=== PATIENT | male | born 1950 | race Caucasian/White ===

== ENCOUNTER → 2022-09-25 | Outpatient (CLI) | payer MEDICARE ==
[2022-09-25 14:12] LABS: Creatinine Urine 52.6 mg/dL (27.00-270.00); Protein, Urine Quantitative 19.4 mg/dL (0.0-11.9)
== END | disposition home or self-care (01) ==
LOC: LAB 06:00 → LAB SHORT 06:00
PROVIDERS: Internal Medicine Nephrology
DX: N18.2 Chronic kidney disease, stage 2 (mild) (principal); D63.1 Anemia in chronic kidney disease; N25.81 Secondary hyperparathyroidism of renal origin; D50.9 Iron deficiency anemia, unspecified; D51.8 Other vitamin B12 deficiency anemias; D52.8 Other folate deficiency anemias; E55.9 Vitamin D deficiency, unspecified; E78.00 Pure hypercholesterolemia, unspecified; R76.9 Abnormal immunological finding in serum, unspecified; R94.5 Abnormal results of liver function studies; R94.6 Abnormal results of thyroid function studies
CPT/HCPCS: 81050; 82043; 82570; 84156

== ENCOUNTER → 2023-02-12 | Outpatient (CLI) | payer MEDICARE | END | disposition home or self-care (01) | LOC: LAB SHORT 08:00 | PROVIDERS: Internal Medicine Nephrology | DX: N18.30 Chronic kidney disease, stage 3 unspecified (principal); D63.1 Anemia in chronic kidney disease; N25.81 Secondary hyperparathyroidism of renal origin; G60.9 Hereditary and idiopathic neuropathy, unspecified; E55.9 Vitamin D deficiency, unspecified; E78.00 Pure hypercholesterolemia, unspecified; R76.9 Abnormal immunological finding in serum, unspecified; R94.5 Abnormal results of liver function studies | CPT/HCPCS: 81050 ==

== ENCOUNTER → 2025-05-04 | Outpatient (CLI) | payer MEDICARE ==
[2025-05-08 04:59] LABS: CREATININE,URINE - PER 24H 1664 mg/d (800-2100); CREATININE,URINE - PER VOLUME 64 mg/dL; HOURS COLLECTED 24 hr; METANEPHRINE,UR - RATIO TO CRT 70 ug/g CRT (0-300); METANEPHRINE,URINE - PER 24H 117 ug/d (55-320); METANEPHRINE,URN - PER VOLUME 45 ug/L; NORMETANEPHRINE,U - PER VOLUME 182 ug/L; NORMETANEPHRINE,URN - PER 24H 473 ug/d (114-865); NORMETANEPHRINE,URN/CRT RATIO 284 ug/g CRT (0-400)
[2025-05-08 05:00] LABS: CREATININE, URINE - PER 24H 1664 mg/d (800-2100); CREATININE, URINE - PER VOLUME 64 mg/dL; HOURS COLLECTED 24 hr; VANILLYLMANDELIC ACID -PER 24H 5.7 mg/d (0.0-7.0); VANILLYLMANDELIC ACID -PER VOL 2.2 mg/L; VANILLYLMANDELIC ACID -RAT CRT 3 mg/gCR (0-6)
== END ==
LOC: LAB FUT 05-02 11:00 → EDSTATUS 05-02 11:00 → LAB 09:53 → LAB SHORT 09:53
PROVIDERS: Internal Medicine Nephrology
DX: N18.1 Chronic kidney disease, stage 1 (principal); D63.1 Anemia in chronic kidney disease; N25.81 Secondary hyperparathyroidism of renal origin; E55.9 Vitamin D deficiency, unspecified; E78.00 Pure hypercholesterolemia, unspecified; R76.9 Abnormal immunological finding in serum, unspecified; R94.5 Abnormal results of liver function studies; R94.6 Abnormal results of thyroid function studies
CPT/HCPCS: 81050; 83835; 84585

== ENCOUNTER 2025-06-30 12:08 | Inpatient (IN) | payer MEDICARE ==
[~2025-06-30] VITALS: Ht 177.8 cm; Wt 95.8 kg
[2025-06-30 13:14] LABS: Source, Urine Clean Catch
[2025-06-30 13:29] LABS: BASOPHILS ABSOLUTE AUTO 0.08 K/mm3 (0.00-0.23); BASOPHILS PERCENT AUTO 1 % (0-2); EOSINOPHILS ABSOLUTE AUTO 0.21 K/mm3 (0.00-0.68); EOSINOPHILS PERCENT AUTO 3 % (0-6); Hematocrit 39.4 % (37.0-53.0); Hemoglobin 14.3 g/dL (13.5-17.5); IMMATURE GRAN ABSOLUTE AUTO 0.04 K/mm3 (0.00-0.10); IMMATURE GRAN PERCENT AUTO 1 % (0-1); LYMPHOCYTES ABSOLUTE AUTO 0.62 K/mm3 (0.84-5.20); LYMPHOCYTES PERCENT AUTO 10 % (21-46); MONOCYTES ABSOLUTE AUTO 0.45 K/mm3 (0.16-1.47); MONOCYTES PERCENT AUTO 7 % (4-13); Mean Corpuscular HGB Conc 36.3 g/dL (31.5-36.5); Mean Corpuscular Volume 88 fL (80-100); NEUTROPHILS ABSOLUTE AUTO 4.88 K/mm3 (1.96-9.15); NEUTROPHILS PERCENT AUTO 78 % (41-73); NRBC ABSOLUTE 0.00 K/mm3 (0.00-0.02); NRBC Auto 0.0 /100 WBC (0.0-0.2); Platelet Count 243 K/mm3 (150-400); RDW Coefficient Variation 12.8 % (11.7-14.2); RDW Standard Deviation 41.3 fL (35.1-46.3)
[2025-06-30 13:38] LABS: Osmolality, Urine 521 mos/kg (15-1400)
[2025-06-30 13:53] LABS: Osmolality, Serum 289.0 mos/KG (275-300)
[2025-06-30 13:58] LABS: Anion Gap 12.0 mmol/L (3-11); Blood Urea Nitrogen 17.0 mg/dL (8-24); CO2, Blood 20.0 mmol/L (21-32); Calcium, Blood 9.4 mg/dL (8.5-10.1); Chloride, Blood 93.0 mmol/L (98-108); Creatinine, Blood 0.77 mg/dL (0.60-1.20); Glucose, Blood 427.0 mg/dL (70-99); Potassium, Blood 4.0 mmol/L (3.5-5.5); Sodium, Blood 121.0 mmol/L (136-145)
[2025-06-30 13:59] LABS: Color, Urine Yellow (P-Yellow); Glucose Qualitative, Urine 4+ (Neg); Ketones, Urine Neg (Neg); Leukocyte Esterase, Urine Neg (Neg); Protein, Urine 3+ (Neg); Specific Gravity, Urine 1.010 (1.003-1.022); Urobilinogen, Urine NORM (Normal)
[2025-06-30 14:10] LABS: Bilirubin, Urine 1+ (Neg)
[2025-06-30 14:12] LABS: White Blood Cells, Urine 0-2 /hpf (0-5)
[2025-06-30] MEDS ORDERED: AMLO5 PO (14:49)
[2025-06-30] MEDS ORDERED: IRBE150 PO (14:50)
[2025-06-30 14:53] LABS: Sodium, Urine, Random 23 mmol/L (20-110)
[2025-06-30] MEDS ORDERED: NS 1,000 ML IV SCH (15:05)
[2025-06-30] MEDS ORDERED: Ondansetron HCl 2 MG / ML 2ML Vial IV ONE (15:05)
[2025-06-30] MEDS ORDERED: Insulin Human Lispro 100 Units/ML 3ML Syringe SC SCH ×2 (16:30→21:00)
[2025-06-30 17:39] VITALS: BP 175/108
[2025-06-30 19:03] LABS: Alanine Aminotransfer (ALT/SGP 137 U/L (12-78); Albumin, Blood 3.3 g/dL (3.4-5.0); Albumin/Globulin Ratio 0.6 (0.8-1.8); Anion Gap 11 mmol/L (3-11); Aspartate Aminotrans (AST/SGOT 69 U/L (12-37); Bilirubin, Direct 7.9 mg/dL (0.0-0.3); Bilirubin, Indirect 2.1 mg/dL (0.1-0.7); Bilirubin, Total 10.0 mg/dL (0.1-1.0); Blood Urea Nitrogen 14 mg/dL (8-24); CO2, Blood 22 mmol/L (21-32); Calcium, Blood 9.2 mg/dL (8.5-10.1); Chloride, Blood 96 mmol/L (98-108); Creatinine, Blood 0.70 mg/dL (0.60-1.20); Globulin, Blood 5.1 g/dL (2.2-4.0); Glucose, Blood 355 mg/dL (70-99); Phosphorus, Blood 3.9 mg/dL (2.5-4.9); Potassium, Blood 3.8 mmol/L (3.5-5.5); Sodium, Blood 125 mmol/L (136-145); Total Protein, Blood 8.4 g/dL (6.4-8.2); Uric Acid, Blood 2.9 mg/dL (3.5-7.2)
[2025-06-30 19:26] LABS: Osmolality, Serum 289 mos/KG (275-300)
--- NOTE | 2025-06-30 20:19 | NUR ---
PHYSICIAN COMMUNICATION CONTACTED FARMER VEGETABLE RESIDENT, DR EARL, TO NOTIFY HIM THAT THE PATIENT IS REQUESTING HIS HOME MEDICATIONS TO BE RESTARTED AND THAT HE IS REPORTING ARTHRITIS PAIN AND IS REQUESTING ADVIL PM, STATING THAT TYLENOL IS INEFFECTIVE FOR HIS PAIN. ALSO NOTIFIED DR EARL THAT THE PATIENT'S BLOOD SUGAR REMAINS ELEVATED AT 372. DR EARL TO INPUT ORDERS.
[2025-06-30] MEDS ORDERED: Insulin Glargine 100 Unit/ML 3 ML SYR SC SCH (21:00)
[2025-06-30 21:10] VITALS: BP 162/85
[2025-06-30 23:55] VITALS: BP 147/86
[2025-07-01 03:22] VITALS: BP 150/82
[2025-07-01 04:28] LABS: Albumin, Blood 3.1 g/dL (3.4-5.0); Anion Gap 10 mmol/L (3-11); Blood Urea Nitrogen 14 mg/dL (8-24); CO2, Blood 22 mmol/L (21-32); Calcium, Blood 8.7 mg/dL (8.5-10.1); Chloride, Blood 100 mmol/L (98-108); Creatinine, Blood 0.65 mg/dL (0.60-1.20); Glucose, Blood 252 mg/dL (70-99); Phosphorus, Blood 3.3 mg/dL (2.5-4.9); Potassium, Blood 3.7 mmol/L (3.5-5.5); Sodium, Blood 128 mmol/L (136-145)
--- NOTE | 2025-07-01 07:16 | NUR ---
SHIFT SUMMARY PATIENT ALERT AND ORIENTED X4. MEDICATED PER EMAR FOR SLEEP. ON ROOM AIR WIHILE AWAKE, USED HOME CPAP FOR SLEEP, DENIES ANY SHORTNESS OF BREATH. VITAL SIGNS STABLE. NO ACUTE ISSUES NOTED OVERNIGHT. WILL CONTINUE TO MONITOR. CALL LIGHT WITHIN REACH.
[2025-07-01 07:58] VITALS: BP 148/86
[2025-07-01] MEDS ORDERED: Enoxaparin 40 MG/0.4 ML SYR SC SCH (09:00)
[2025-07-01] MEDS ORDERED: Insulin Glargine 100 Unit/ML 3 ML SYR SC SCH ×2 (09:00→21:00)
--- NOTE | 2025-07-01 12:48 | NUR ---
UPDATE DR ALDANA NOTIFIED OF PATIENT SODIUM LEVEL, NEW ORDERS RECEIVED.
[2025-07-01 13:51] VITALS: BP 152/91
--- NOTE | 2025-07-01 18:15 | NUR ---
UPDATE THIS RN NOTIFIED DR ALDANA REGARDING SODIUM LEVEL, NEW ORDERS RECEIVED.
--- NOTE | 2025-07-01 18:34 | NUR ---
SHIFT SUMMARY PATIENT IS ALERT AND ORIENTED, ABLE TO FOLLOW COMMANDS AND MAKE NEEDS KNOWN. VSS, SPO2 >90% ON RA, PATIENT HYPERTENSIVE THIS SHIFT, PATIENT ASYMPTOMATIC, MD MADE AWARE, NEW ORDERS RECEIVED. PATIENT DENIES N/V/D, PATIENT HAS AN OSTOMY THAT HE SELF MANAGES. PATIENT HAS HAD COLIN COLORED URINE THIS SHIFT, DENIES DIFFICULTY URINATING OR PAIN WITH URINATION. PATIENT ON A 1L FLUID RESTRICTOION. PATIENT AMBULATES WITH A CANE INDEPENDENTLY. PATIENT UP IN BED, BED IN LOWEST POSITION, CALL LIGHT WITHIN REACH.
[2025-07-01 20:45] VITALS: BP 165/81
[2025-07-01 23:46] VITALS: BP 121/80
[2025-07-02 00:06] VITALS: BP 169/94
[2025-07-02 00:10] VITALS: BP 155/85
[2025-07-02 03:40] VITALS: BP 163/73
[2025-07-02 04:28] LABS: Hematocrit 38.0 % (37.0-53.0); Hemoglobin 13.3 g/dL (13.5-17.5)
[2025-07-02 05:04] LABS: Albumin, Blood 2.9 g/dL (3.4-5.0); Anion Gap 13 mmol/L (3-11); Blood Urea Nitrogen 19 mg/dL (8-24); CO2, Blood 18 mmol/L (21-32); Calcium, Blood 9.1 mg/dL (8.5-10.1); Chloride, Blood 103 mmol/L (98-108); Creatinine, Blood 0.78 mg/dL (0.60-1.20); Glucose, Blood 247 mg/dL (70-99); Magnesium, Blood 2.1 mg/dL (1.6-2.4); Phosphorus, Blood 3.7 mg/dL (2.5-4.9); Potassium, Blood 3.8 mmol/L (3.5-5.5); Sodium, Blood 130 mmol/L (136-145)
--- NOTE | 2025-07-02 05:06 | NUR ---
END OF SHIFT REPORT PT REPORT CALLED TO RUSSELL GUZMAN FOR PT TO BE MOVED TO ROOM 360. PT CURRENTLY PACKING UP HIS HOME CPAP AND WILL BE TRANSPORTED IN WHEEL CHAIR. WHEN AM CHEMISTRY RESULTS, RN TO CALL DR KATYA Yeager RESULTS. THIS SHIFT, PT WAS FLUID RESTRICTED TO WHAT WAS IN HIS CUP AT 300 CC. PT TOOK NA TABS PRESCRIBED. PT MANAGED COLOSTOMY AND VOIDING YELLOW URINE. PT DENIED PAIN FOR SHIFT. BPS IN 160'S OVERNIGHT AND AFEBRILE. NO NEUROLOGICAL DEFICITS NOTED W LOW NA LEVEL. PT SKIN COLOR JAUNDICED.
[2025-07-02 06:21] LABS: pH Blood Venous 7.38 (7.34-7.37)
[2025-07-02 08:02] VITALS: BP 159/82
[2025-07-02 12:32] LABS: Source, Urine Clean Catch
[2025-07-02 12:34] LABS: Alanine Aminotransfer (ALT/SGP 118.0 U/L (12-78); Albumin, Blood 3.1 g/dL (3.4-5.0); Albumin/Globulin Ratio 0.6 (0.8-1.8); Aspartate Aminotrans (AST/SGOT 55.0 U/L (12-37); Bilirubin, Direct 6.6 mg/dL (0.0-0.3); Bilirubin, Indirect 2.3 mg/dL (0.1-0.7); Bilirubin, Total 8.9 mg/dL (0.1-1.0); Globulin, Blood 4.9 g/dL (2.2-4.0); Total Protein, Blood 8.0 g/dL (6.4-8.2)
[2025-07-02 12:48] LABS: Color, Urine Amber (P-Yellow); Glucose Qualitative, Urine Neg (Neg); Ketones, Urine 2+ (Neg); Leukocyte Esterase, Urine 1+ (Neg); Protein, Urine 3+ (Neg); Specific Gravity, Urine 1.025 (1.003-1.022); Urobilinogen, Urine 1+ (Normal)
[2025-07-02 12:53] LABS: Bilirubin, Urine 3+ (Neg)
[2025-07-02 13:40] LABS: Red Blood Cells, Urine 0-2 /hpf (0-2)
[2025-07-02 15:46] VITALS: BP 178/93
--- NOTE | 2025-07-02 16:07 | NUR ---
SHIFT SUMMARY PT AOX4, COOPERATIVE, ABLE TO MAKE NEEDS KNOWN. PT IS IND IN ROOM AND ROOM AIR. FIRST HALF OF SHIFT, WAS ON 1L FLUID RESTRICTION PER NEPHROLOGY, GI SWITCHED TO FLUIDS AD ISMA PER GI FOR MRI ON 07/03/25. TOLERATING MEDICATIONS. PT IS HAVING HARD URINE, UA SENT. BED IN LOWEST POSITION, CALL LIGHT WITHIN REACH.
[2025-07-02 16:24] LABS: Prothrombin Time Results 11.7 Sec (9.7-11.5)
[2025-07-02 16:28] LABS: Ferritin, Serum 670.0 ng/mL (26-388); Total Iron Binding Capacity 239.0 ug/dL (250-450)
[2025-07-02 16:30] LABS: Alpha Feto Protein, Tumor Mkr 2.4 ng/mL (0.0-8.0)
[2025-07-02 19:50] VITALS: BP 148/85
[2025-07-02] MEDS ORDERED: Insulin Glargine 100 Unit/ML 3 ML SYR SC SCH (21:00)
[2025-07-03 04:22] VITALS: BP 164/79
[2025-07-03 05:05] LABS: Hematocrit 37.8 % (37.0-53.0); Hemoglobin 13.1 g/dL (13.5-17.5)
[2025-07-03 05:30] LABS: Albumin, Blood 3.0 g/dL (3.4-5.0); Anion Gap 10 mmol/L (3-11); Blood Urea Nitrogen 21 mg/dL (8-24); CO2, Blood 21 mmol/L (21-32); Calcium, Blood 9.0 mg/dL (8.5-10.1); Chloride, Blood 105 mmol/L (98-108); Creatinine, Blood 0.67 mg/dL (0.60-1.20); Glucose, Blood 208 mg/dL (70-99); Magnesium, Blood 2.1 mg/dL (1.6-2.4); Phosphorus, Blood 3.6 mg/dL (2.5-4.9); Potassium, Blood 3.8 mmol/L (3.5-5.5); Sodium, Blood 132 mmol/L (136-145)
--- NOTE | 2025-07-03 05:43 | NUR ---
SHIFT SUMMARY: Pt is admitted for hyponatremia and is a full code. Is alert and able to make needs known. ADLs have been IND. denies pain or discomfort when asked. Iv to left AC is patent with dressing that is CDI. colostomy that is self managed. Jaundice noted. Pending MRI this AM.
[2025-07-03] MEDS ORDERED: NS 1,000 ML IV SCH (06:30)
[2025-07-03 07:29] VITALS: BP 155/80
[2025-07-03] MEDS ORDERED: N-Acetylcysteine 600 MG CAP PO SCH (09:00)
[2025-07-03 15:12] VITALS: BP 142/77
--- NOTE | 2025-07-03 18:09 | NUR ---
SHIFT SUMMARY PT A&OX4, VSS, AMB IND, TOLERATING PO, VOIDING, AND DENIED PAIN. PT MANAGES ILEOSTOMY IND. NS INFUSED PER ORDER PRIOR TO MRI. DEBBIE ROUNDED ON PT, SEE NOTE. HEP LABS PENDING. NO OTHER ACUTE CHANGES. CALL LIGHT WITHIN REACH AND PT ABLE TO MAKE NEEDS KNOWN.
[2025-07-03 20:03] VITALS: BP 161/85
[2025-07-03] MEDS ORDERED: Insulin Glargine 100 Unit/ML 3 ML SYR SC SCH (21:00)
[2025-07-04 04:04] VITALS: BP 143/63
--- NOTE | 2025-07-04 04:43 | NUR ---
MILD DISABILITIES TEACHER SUMMARY PT A&OX4, VSS. PT IS PLEASANT AND COOPERATIVE W/ CARE. ABLE TO MAKE NEEDS KNOWN WELL. HAD ABD MRI DONE TODAY. PER FINDINGS, UNREMARKABLE EXCEPT BENIGN LEFT PARAPELVIC RENAL CYSTS. HEP LABS STILL PENDING. PT HAS RLQ COLOSTOMY, WHICH PT MANAGES INDEPENDENTLY. OTHERWISE, PT HAS BEEN ASLEEP FOR MOST OF THE SHIFT. CHEST RISE/RESPIRATIONS NOTED. BED RAILS UP X 2, BED IN LOWEST POSITION, BED WHEELS LOCKED, PERSONAL BELONGINGS AND CALL LIGHT WITHIN REACH FOR SAFETY.
[2025-07-04 05:35] LABS: Hematocrit 37.5 % (37.0-53.0); Hemoglobin 12.9 g/dL (13.5-17.5)
[2025-07-04 06:07] LABS: Alanine Aminotransfer (ALT/SGP 94.0 U/L (12-78); Albumin, Blood 3.0 g/dL (3.4-5.0); Albumin/Globulin Ratio 0.7 (0.8-1.8); Anion Gap 9.0 mmol/L (3-11); Aspartate Aminotrans (AST/SGOT 46.0 U/L (12-37); Bilirubin, Total 6.0 mg/dL (0.1-1.0); Blood Urea Nitrogen 16.0 mg/dL (8-24); CO2, Blood 22.0 mmol/L (21-32); Calcium, Blood 8.8 mg/dL (8.5-10.1); Chloride, Blood 104.0 mmol/L (98-108); Creatinine, Blood 0.74 mg/dL (0.60-1.20); Globulin, Blood 4.4 g/dL (2.2-4.0); Glucose, Blood 203.0 mg/dL (70-99); Magnesium, Blood 1.9 mg/dL (1.6-2.4); Potassium, Blood 3.6 mmol/L (3.5-5.5); Sodium, Blood 131.0 mmol/L (136-145); Total Protein, Blood 7.4 g/dL (6.4-8.2)
[2025-07-04 07:08] VITALS: BP 148/93
[2025-07-04] MEDS ORDERED: Insulin Human Lispro 100 Units/ML 3ML Syringe SC SCH ×2 (07:30→12:20)
[2025-07-04] MEDS ORDERED: Insulin NPH 100 Unit / ML 10ML Vial SC ONE (12:20)
[2025-07-04 15:44] VITALS: BP 144/76
[2025-07-04 16:14] LABS: HEPATITIS B SURFACE ANTIBODY <3.10 IU/L
[2025-07-04 16:47] LABS: HBV CORE ANTIBODIES,TOTAL Negative (Negative)
[2025-07-04 16:54] LABS: HEPATITIS A ANTIBODIES, TOTAL Positive (Negative)
--- NOTE | 2025-07-04 17:21 | NUR ---
SHIFT SUMMARY PLAN FOR LIVER BIOPSY TOMORROW. FLUID RESTRICTION REMAINS IN PLACE. BLOOD GLUCOSE ELEVATED THIS SHIFT, PROVIDER NOTIFIED, NEW ORDER RECEIVED, AND INSULIN GIVEN. BLOOD GLUCOSE NOW WNL. NO OTHER ACUTE CHANGES. CALL LIGHT WITHIN REACH AND PT ABLE TO MAKE NEEDS KNOWN.
[2025-07-04 18:43] LABS: ALPHA-1-ANTITRYPSIN 220 mg/dL (90-200)
[2025-07-04 19:23] VITALS: BP 135/77
[2025-07-05] VITALS (9 sets, daily range): BP systolic 135–163; BP diastolic 74–90
[2025-07-05 03:25] LABS: FACTIN SMOOTH MUSCLE,IGG ELISA 14 Units (0-19); MITOCHONDRIAL (M2) AB,IGG 8.6 Units (0.0-24.9)
--- NOTE | 2025-07-05 04:14 | NUR ---
SHIFT SUMMARY: PT IS AOX4 AND ABLE TO MAKE NEEDS KNOWN. PT IS AWAITING A LIVER BIOPSY TODAY AND IS NPO FOR PROCEDURE. PT MEDICATED PER EMAR. NO ACUTE CHANGES THIS SHIFT
[2025-07-05 04:58] LABS: Hematocrit 37.2 % (37.0-53.0); Hemoglobin 13.2 g/dL (13.5-17.5); Mean Corpuscular HGB Conc 35.5 g/dL (31.5-36.5); Mean Corpuscular Volume 90 fL (80-100); NRBC ABSOLUTE 0.00 K/mm3 (0.00-0.02); NRBC Auto 0.0 /100 WBC (0.0-0.2); Platelet Count 263 K/mm3 (150-400); RDW Coefficient Variation 13.2 % (11.7-14.2); RDW Standard Deviation 43.5 fL (35.1-46.3)
[2025-07-05 05:12] LABS: Prothrombin Time Results 11.7 Sec (9.7-11.5)
[2025-07-05 05:39] LABS: Alanine Aminotransfer (ALT/SGP 106.0 U/L (12-78); Albumin, Blood 2.9 g/dL (3.4-5.0); Albumin/Globulin Ratio 0.6 (0.8-1.8); Anion Gap 10.0 mmol/L (3-11); Aspartate Aminotrans (AST/SGOT 61.0 U/L (12-37); Bilirubin, Total 5.4 mg/dL (0.1-1.0); Blood Urea Nitrogen 17.0 mg/dL (8-24); CO2, Blood 23.0 mmol/L (21-32); Calcium, Blood 8.9 mg/dL (8.5-10.1); Chloride, Blood 103.0 mmol/L (98-108); Creatinine, Blood 0.72 mg/dL (0.60-1.20); Globulin, Blood 4.6 g/dL (2.2-4.0); Glucose, Blood 181.0 mg/dL (70-99); Potassium, Blood 3.5 mmol/L (3.5-5.5); Sodium, Blood 132.0 mmol/L (136-145); Total Protein, Blood 7.5 g/dL (6.4-8.2)
[2025-07-05 05:42] LABS: ANTI-NUCLEAR AB ANA,IGG ELISA None Detected (None Detected)
--- NOTE | 2025-07-05 08:00 | NUR ---
MORNING MEDCIATIONS PT REFUSING MORNING MEDICATIONS WHILE NPO. ATTEMPTED TO TALK WITH U/S ABOUT BIOPSY. NO AMSWER YET. PT NEEDS TO BE NPO 4 HOURS PRIOR. CARE ON GOING
--- NOTE | 2025-07-05 10:15 | NUR ---
POST BIOPSY PT RETURNED AWAKE AND ALERT. INSTRUCTED TO LAY ON HIS RIGHT SIDE FOR 15 MINUTES. HELD BREAKFAST RE-WARMED AND BROUGHT TO HIM. TALKING TO HIS . REVIEWED DISCHARGE POST BIOPSY HOME CARE INSTRUCTIONS.
[2025-07-05] MEDS ORDERED: INSULANPEN SC (13:15)
[2025-07-05] MEDS ORDERED: HUMALOG KW100 UNIT/1 SC (13:16)
[2025-07-05] MEDS ORDERED: SODCHL1 PO (13:16)
--- NOTE | 2025-07-05 13:56 | NUR ---
DISCAHRGE HOME PT DISCAHRGED VIA W/C ACCOMPANIED BY [employer] DBA. DRIVING. HARD SCRIPT FOR OXYCIDINE GIVEN TO PT . IV REMOVED. CARE ONGOING.
[2025-07-05 16:17] LABS: HCV QNT BY NAAT (IU/ML) Not Detected; HCV QNT BY NAAT (LOG IU/ML) Not Detected; HCV QNT BY NAAT INTERP Not Detected (Not Detected)
== END 2025-07-05 14:07 | disposition home or self-care (01) | DRG 644 ==
LOC: ER 12:08 → ERHOLD 16:25 → PCU 16:25 → MEDS 16:25 → PCU 17:38 → MEDS 07-02 05:25
PROVIDERS: Emergency Medicine; Internal Medicine; Internal Medicine Gastroenterology; Internal Medicine Nephrology; ADMIT Internal Medicine
DX: E22.2 Syndrome of inappropriate secretion of antidiuretic hormone (principal); E87.20 Acidosis, unspecified; K71.0 Toxic liver disease with cholestasis; I48.91 Unspecified atrial fibrillation; E11.65 Type 2 diabetes mellitus with hyperglycemia; E11.22 Type 2 diabetes mellitus with diabetic chronic kidney disease; I12.9 Hypertensive chronic kidney disease with stage 1 through stage 4 chronic kidney disease, or unspecified chronic kidney disease; D63.1 Anemia in chronic kidney disease; E88.09 Other disorders of plasma-protein metabolism, not elsewhere classified; N18.2 Chronic kidney disease, stage 2 (mild); G47.33 Obstructive sleep apnea (adult) (pediatric); N40.0 Benign prostatic hyperplasia without lower urinary tract symptoms; M17.11 Unilateral primary osteoarthritis, right knee; M85.80 Other specified disorders of bone density and structure, unspecified site; E55.9 Vitamin D deficiency, unspecified; F41.9 Anxiety disorder, unspecified; Z96.653 Presence of artificial knee joint, bilateral; Z90.49 Acquired absence of other specified parts of digestive tract; Z86.19 Personal history of other infectious and parasitic diseases; Z98.890 Other specified postprocedural states; Z79.899 Other long term (current) drug therapy
CPT/HCPCS: 36415; 47000; 74177; 74183; 76942; 80048; 80053; 80069; 80076; 81001; 82103; 82105; 82248; 82306; 82550; 82728; 82787; 82803; 82947; 83036; 83540; 83550; 83735; 83880; 83930; 83935; 84100; 84295; 84300; 84550; 85014; 85018; 85025; 85027; 85610; 86015; 86038; 86301; 86381; 86704; 86708; 87340; 87522; 93005; 93010; 94760; 94762; 96360; 99284-25; A9270; A9579; J1650; J1815; J2405; J7030; Q9967